=== PATIENT | female | born 1965 | race Caucasian/White ===

== ENCOUNTER 2022-10-01 11:11 | Emergency (ER) | payer OTHER ==
--- NOTE | 2022-10-01 13:03 | ED Physician Documentation ---
PD HPI Fall - Stated complaint Stated Complaint: RT SIDE PAIN/GLF - Chief complaint Chief Complaint: Trauma Ch/Bk - History obtained from History obtained from: Patient - History of Present Illness Mechanism of injury: Tripped, Slipped Fall distance: Standing position Where injury occurred: Street Timing - onset: Yesterday Injury(ies) location: Chest, Left Uppper Extremity Quality of pain: Pain Associated symptoms: No: LOC, AMS, Amnesia, Seizures, Ear drainage, Nasal drainage, Neck pain, Weakness, Paresthesias, Dyspnea, Nausea / vomiting, Hematemesis Symptoms improve with: Rest Worsens with: Movement, Palpation Contributing factors: No: Anticoagulated, Intoxicated Similar symptoms before: Has not had sx before Recently seen: Not recently seen - Additional information Additional information: 57-year-old Nayeli Lerma was getting out of her car yesterday to go into a store when she slipped or tripped on wet pavement. She fell forward landing with her left hand facing dorsally on the ground and her right arm tucked under her right breast. She contused her chest on the right side and complains of pain in the right chest and pain in the left hand. She did not have loss of consciousness in the fall but she does not recall exactly how or why she fell. She was on wet pavement. Review of Systems Constitutional: denies: Fever Ears: denies: Ear pain Nose: denies: Congestion Throat: denies: Sore throat Cardiac: reports: Chest pain / pressure. denies: Palpitations, Pedal edema, Calf pain Respiratory: denies: Dyspnea, Cough GI: denies: Abdominal Pain, Nausea, Vomiting, Constipation, Diarrhea : denies: Dysuria, Frequency PD PAST MEDICAL HISTORY - Allergies Allergies/Adverse Reactions: Allergies Allergy/AdvReac Type Severity Reaction Status Date / Time morphine Allergy Unknown Verified 10/01/22 11:21 Paper tape Allergy Unknown Uncoded 10/01/22 11:21 PD ED PE NORMAL - Vitals Vital signs reviewed: Yes (Hypertensive) - General General: Alert and oriented X 3, No acute distress, Well developed/nourished - HEENT HEENT: Atraumatic, PERRL, EOMI - Neck Neck: Supple, no meningeal sign, No bony TTP - Cardiac Cardiac: RRR, No murmur - Respiratory Respiratory: No respiratory distress, Clear bilaterally, Other (Point tenderness to the anterior lateral ribs on the right at about the 6 to eighth rib.) - Abdomen Abdomen: Soft, Non tender - Back Back: No CVA TTP, No spinal TTP - Derm Derm: Normal color, Warm and dry, No rash - Extremities Extremities: No deformity, No edema - Neuro Neuro: Alert and oriented X 3, 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 Mild left basilar atelectasis or infiltrate.), EMP independent interpretation of test hand Relevant Findings:: Prelim report reviewed (Impression: No acute bony abnormality), EMP independent interpretation of test Procedures - Splint (location) - Minor lleft hand Splint applied by: Tech Type of splint: Fiberglass, Volar cock up Other: Patient tolerated well, No complications, Neurovascular intact PD Medical Decision Making - ED course Complexity details: considered differential, d/w patient ED course: 57-year-old female with a fall yesterday has pain in the right chest specifically over the rib and she does not have evidence of fracture or pneumothorax. She has been controlling her pain with Tylenol. She also has contused her hand and x-rays of that are also without fracture. She does have improvement in her pain if she holds her hand over her purse and we have placed her into a splint for support. She is from out of town will follow-up with her primary care doctor when she returns home. I have given her instructions to be concerned about increased pain on the fifth day. Departure - Departure Disposition: 01 Home, Self Care Clinical Impression: Contusion of chest wall Qualifiers: Encounter type: initial encounter Laterality: right Qualified Code(s): S20.211A - Contusion of right front wall of thorax, initial encounter Contusion of left hand Qualifiers: Encounter type: initial encounter Qualified Code(s): S60.222A - Contusion of left hand, initial encounter Condition: Stable Instructions: ED Contusion Rib, ED Sprain Hand, ED Contusion Vs Minor Fx Rib Follow-Up: Your, doctor [Other] Comments: Annabelle, today there do not appear to be fractures to your chest or your hand. We have placed her hand into a splint for comfort when you feel that you are able to move your fingers without discomfort you can use stop the use of the splint. We are expecting an increase in your pain at about day #5 from the initial injury. This can sometimes happen suddenly and can be sometimes distressing. Follow up as pain medication may be indicated.
--- NOTE | 2022-10-01 13:06 | XRAY Report ---
PROCEDURE: Finger(s) LT INDICATIONS: Trauma TECHNIQUE: AP hand, 2 views of the third and fourth finger(s) acquired. COMPARISON: None. FINDINGS: Bones: No fractures or dislocations. No suspicious bony lesions. Soft tissues: No suspicious soft tissue calcifications or masses. IMPRESSION: No acute bony abnormality. Reviewed by: Aubrey Miranda MD on 10/01/2022 12:04 PM [email or web address] Approved by: Aubrey Miranda MD on 10/01/2022 12:04 PM AKDT Station ID: [id number]
--- NOTE | 2022-10-01 13:08 | XRAY Report ---
PROCEDURE: Ribs w/PA Chest RT INDICATIONS: GLF. Rib pain. Pain with deep breath. TECHNIQUE: 2 views of the right ribs were acquired, along with a single view chest. COMPARISON: None. FINDINGS: Surgical changes and devices: None. Bones and chest wall: No fractures or dislocations. No suspicious bony lesions. Overlying soft tis sues appear unremarkable. Lungs and pleura: No pleural effusions or pneumothorax. Lungs appear clear. Mild left basilar ate lectasis and or infiltrate Mediastinum: Mediastinal contours appear normal. Heart size is normal. IMPRESSION: No displaced rib fracture or pneumothorax. Mild left basilar atelectasis and or infiltrate Reviewed by: Aubrey Miranda MD on 10/01/2022 12:07 PM AKDT Approved by: Aubrey Miranda MD on 10/01/2022 12:07 PM AKDT Station ID: [id number]
[2022-10-01 14:11] VITALS: BP 158/67
== END 2022-10-01 14:00 | disposition home or self-care (01) ==
LOC: ED 11:11
DX: S20.211A Contusion of right front wall of thorax, initial encounter (principal); S60.222A Contusion of left hand, initial encounter; W01.0XXA Fall on same level from slipping, tripping and stumbling without subsequent striking against object, initial encounter
CPT/HCPCS: 29125; 99283; 99284